=== PATIENT | female | born 2000 | race African-American/Black ===

== ENCOUNTER 2021-10-20 09:34 | Emergency (ER) | payer OTHER ==
[~2021-10-20] VITALS: Ht 157.5 cm; Wt 122.5 kg
[2021-10-20 09:52] LABS: URINE BLOOD NEGATIVE (Negative); URINE COLOR YELLOW; URINE GLUCOSE-RANDOM* NEGATIVE (Negative); URINE KETONES TRACE (Negative); URINE LEUKOCYTES-REFLEX NEGATIVE (Negative); URINE NITRITE-REFLEX NEGATIVE (Negative); URINE PROTEIN (DIPSTICK) TRACE (Negative); URINE SPECIFIC GRAVITY >= 1.030 (1.005-1.035); URINE UROBILINOGEN 0.2 E.U./dl (0.2-1.0)
[2021-10-20 09:54] LABS: URINE CLARITY HAZY
[2021-10-20 09:56] LABS: ICTOTEST (BILI CONFIRMATORY) Negative (Negative); URINE BILIRUBIN NEGATIVE (Negative)
[2021-10-20 10:39] LABS: CALCIUM 9.4 mg/dL (8.5-10.1); CREATININE 0.8 mg/dL (0.6-1.0)
[2021-10-20 10:46] LABS: ALBUMIN 3.6 g/dL (3.4-5.0); TOTAL BILIRUBIN 0.5 mg/dL (0.2-1.0); TOTAL PROTEIN 8.3 g/dL (6.4-8.2)
[2021-10-20 10:49] LABS: ABSOLUTE NEUTROPHILS 3.8 thou/uL (1.4-8.2); BASOPHILS 0.7 % (0.0-2.0); EOSINOPHILS 0.3 % (0.0-3.0); HEMATOCRIT 32.7 % (37.0-47.0); HEMOGLOBIN 10.1 gm/dL (12.0-15.0); LYMPHOCYTES 33.1 % (24.0-44.0); MCH 22.4 pg (26.0-34.0); MCHC 30.9 g/dL (28.0-37.0); MCV 72.3 fL (80.0-100.0); MONOCYTES 8.3 % (1.0-8.0); PLATELET COUNT 358 thou/uL (150-400); POLYS 57.6 % (36.0-66.0); RBC 4.52 mil/uL (4.20-5.00); RDW 17.2 % (10.5-14.5); WBC 6.6 thou/uL (4.0-11.0)
[2021-10-20 11:40] VITALS: BP 149/111
== END 2021-10-20 11:51 | disposition home or self-care (01) ==
LOC: ER 09:34
PROVIDERS: Emergency Medicine
DX: I88.0 Nonspecific mesenteric lymphadenitis (principal)